=== PATIENT | female | born 1990 | race Asian ===

== ENCOUNTER 2023-10-13 15:17 | Emergency (ER) | payer SELFPAY ==
[~2023-10-13] VITALS: Ht 157.5 cm; Wt 81.8 kg
[2023-10-13 17:24] VITALS: BP 123/78; PULSE 84; RESP 16; TEMP 97.9
[2023-10-13 17:28] LABS: BASOPHILS % (AUTO) 0.4 % (0.0-2.0); EOSINOPHILS % (AUTO) 0 % (1.0-6.0); HEMATOCRIT 40.6 % (36-46); HEMOGLOBIN 13.3 g/dL (12.0-16.0); LYMPHOCYTES # (AUTO) 1.1 K/uL (1.0-4.8); LYMPHOCYTES % (AUTO) 24.6 % (22.0-44.0); MEAN CORPUSCULAR HEMOGLOBIN 28.5 pg (26.0-34.0); MEAN CORPUSCULAR HGB CONC 32.8 G/dL (31.0-37.0); MEAN CORPUSCULAR VOLUME 87 fL (80-100); MONOCYTES # (AUTO) 0.4 K/uL (0.1-1.0); MONOCYTES % (AUTO) 9.4 % (2.0-9.0); NEUTROPHILS # (AUTO) 3.1 K/uL (1.8-7.7); NEUTROPHILS % (AUTO) 65.6 % (40.0-70.0); PLATELET COUNT (AUTO) 166 K/uL (150-450); RED BLOOD CELL COUNT(AUTO) 4.68 MIL/uL (4.00-5.20); WHITE BLOOD COUNT (AUTO) 4.7 K/uL (4.5-11.0)
[2023-10-13 17:40] LABS: ANION GAP 11 mmol/L (8-16); CARBON DIOXIDE 25 mmol/L (22-29); CHLORIDE 101 mmol/L (98-107); CREATININE 0.78 mg/dL (0.60-1.30); GLOMERULAR FILTR. RATE CALC > 60 mL/min (>60); GLUCOSE,RANDOM 129 mg/dL (70-110); POTASSIUM 3.7 mmol/L (3.5-5.1); SODIUM SERUM 137 mmol/L (136-145); UREA NITROGEN, BLOOD 5 mg/dL (7-18)
[2023-10-13] MEDS: MECLIZINE HCL 25 MG TABLET PO ONE (17:42)
[2023-10-13] MEDS: ONDANSETRON HCL 4 MG TABLET PO ONE (17:42)
[2023-10-13] MEDS: ACETAMINOPHEN 500 MG TABLET PO ONE (17:42)
[2023-10-13] MEDS ORDERED: ACET-66 PO (18:49)
== END 2023-10-13 18:59 | disposition home or self-care (01) ==
LOC: EMS 15:27
DX: B34.9 Viral infection, unspecified (principal); R42 Dizziness and giddiness
CPT/HCPCS: 99284; 80048; 84703; 85025; 36415; Q0162